=== PATIENT | female | born 1945 | race Caucasian/White ===

== ENCOUNTER 2017-08-16 08:59 | Emergency (ER) | payer OTHER, MEDICARE ==
[2017-08-16 09:14] VITALS: BP 133/78
--- NOTE | 2017-08-16 09:36 | UC ---
Lower Extremity/Ankle HPI - HPI Summary HPI Summary: 72 Y/O female presents S/P fall with ankle injury. States twisted ankle coming down stairs. L ankle swollen and painful. Unable to bear weight. Denies other injury. Medical history reviewed at this visit and is significant for HTN and diabetes. Blood pressure is elevated at this visit most likely due to current injury and pain. States is adherent with medications. - History of Current Complaint Chief Complaint: UCLowerExtremity Stated Complaint: ANKLE INJURY Time Seen by Provider: 08/16/17 09:00 Hx Obtained From: Patient ?: No Onset/Duration: Sudden Onset Severity Initially: Severe Severity Currently: Severe Pain Intensity: 7 Pain Scale Used: 0-10 Numeric Aggravating Factor(s): Standing, Ambulation Alleviating Factor(s): Rest Able to Bear Weight: No - Risk Factors Gout Risk Factors: Negative DVT Risk Factors: Negative Septic Arthritis Risk Factor: Negative - Allergies/Home Medications Allergies/Adverse Reactions: Allergies Allergy/AdvReac Type Severity Reaction Status Date / Time Cephalexin [From Keflex] Allergy Unknown Verified 02/14/13 08:42 Reaction Details Home Medications: Home Medications Cholecalciferol [Vitamin D] 1,000 unit PO 08/16/17 [History] Simvastatin TAB(NF) [Zocor(NF)] 10 mg PO 1700 08/16/17 [History Confirmed ] metFORMIN* [Glucophage 500 MG TAB *] 500 mg PO BID 08/16/17 [History Confirmed 08/16/17] PMH/Surg Hx/FS Hx/Imm Hx Endocrine History: Diabetes, Dyslipidemia Cardiovascular History: Hypertension Respiratory History: COPD - Surgical History Surgical History: Yes Surgery Procedure, Year, and Place: LAPOROSCOPY. TUBAL LIGATION - Social History Alcohol Use: Rare Substance Use Type: None Smoking Status (MU): Heavy Every Day Tobacco Smoker Type: Cigarettes Review of Systems Constitutional: Negative Skin: Negative Respiratory: Negative Cardiovascular: Negative Gastrointestinal: Negative Genitourinary: Negative Musculoskeletal: Decreased ROM - Left foot and ankle Neurological: Negative Psychological: Negative Is Patient Immunocompromised?: No All Other Systems Reviewed And Are Negative: Yes Physical Exam Triage Information Reviewed: Yes Appearance: Well-Appearing Vital Signs: Initial Vital Signs Temp 98.2 F 08/16/17 09:10 Pulse 107 08/16/17 09:10 Resp 18 08/16/17 09:10 BP 133/78 08/16/17 09:10 Pulse Ox 91 08/16/17 09:10 Vital Signs Reviewed: Yes Eye Exam: Normal Respiratory Exam: Normal Respiratory: Positive: Lungs clear, Normal breath sounds Cardiovascular Exam: Normal Cardiovascular: Positive: RRR Musculoskeletal Exam: Other Musculoskeletal: Positive: ROM Limited @ - L foot and ankle Neurological Exam: Normal Neurological: Positive: Alert Psychological Exam: Normal Skin Exam: Normal Lower Extremity Course/Dx - Differential Dx/Diagnosis Differential Diagnosis/HQI/PQRI: Fracture (Closed), Sprain, Strain Provider Diagnoses: Disatal Fibula and fith metatarsal fx Discharge - Discharge Plan Condition: Stable Disposition: HOME Patient Education Materials: Leg Fracture (ED) Referrals: Chris Andrews MD [Primary Care Provider] - Dariela Chaudhary MD [Medical Doctor] - Additional Instructions: Your xray show a fibula fracture and a fifth metatarsal fracture. Please do not bear weight on your L leg. Take Ibuprofen for pain, you have been given narcotic pain medication for moderate to severe pain. Please take extra precautions to prevent falls while on pain medications. Follow up with orthopedics in the morning. You may return to Urgent Care as needed.
--- NOTE | 2017-08-16 09:59 | RAD ---
INDICATION: Left ankle injury. TECHNIQUE: 3 views of the left ankle were obtained. FINDINGS: There is anterolateral soft tissue swelling. There is an oblique intra-articular nondisplaced fracture of the distal fibula. Joint spaces appear maintained. There is a transverse nondisplaced fracture at the base of the fifth metatarsal. IMPRESSION: 1. OBLIQUE INTRA-ARTICULAR NONDISPLACED FRACTURE OF THE DISTAL FIBULA. 2. TRANSVERSE NONDISPLACED FRACTURE BASE OF THE FIFTH METATARSAL.
[2017-08-16] MEDS ORDERED: HYDROcodone/ACETAMIN 5-325 MG* 1 TAB PO ONE (10:05)
== END 2017-08-16 10:18 | disposition home or self-care (01) ==
LOC: UCEAST 08:59
DX: S82.832A Other fracture of upper and lower end of left fibula, initial encounter for closed fracture (principal); S92.352A Displaced fracture of fifth metatarsal bone, left foot, initial encounter for closed fracture; X50.1XXA Overexertion from prolonged static or awkward postures, initial encounter; Y93.01 Activity, walking, marching and hiking; Y92.9 Unspecified place or not applicable; Y99.9 Unspecified external cause status; E11.9 Type 2 diabetes mellitus without complications; I10 Essential (primary) hypertension; Z79.84 Long term (current) use of oral hypoglycemic drugs; E78.5 Hyperlipidemia, unspecified; Z72.0 Tobacco use
CPT/HCPCS: 99213; G0463

== ENCOUNTER 2023-08-17 11:07 | Inpatient (IN) ==
[2023-08-17] MEDS ORDERED: Piperacillin/Tazobac 3.375 BAG 3.375 GM/100 ML BAG IV ONE (12:34)
[2023-08-17] MEDS ORDERED: Albuterol/Ipratropium NEB.SOL (2.5/0.5 MG) 3 ML NEB.SOLN INH ONE (12:35)
[2023-08-17 13:06] LABS: PCO2 Arterial 79 mmHg (35-45); PO2 Arterial 53 mmHg (80-100)
[2023-08-17 13:37] LABS: ABS Monocytes 0.4 10^3/uL (0.0-0.9); ABS Neutrophils 8.7 10^3/uL (1.5-7.6); Eosinophil % 0.4 %; Hematocrit 36.5 % (35-45); Hemoglobin 9.9 g/dL (11.5-14.3); Mean Corpuscular Hgb Conc 27.2 g/dL (31-36); Mean Corpuscular Volume 73.6 fL (80-97); Mean Platelet Volume 8.4 fL (7.5-11.2); Platelet Count 240 10^3/uL (150-450); Red Blood Count 4.96 10^6/uL (3.63-4.92); Red Cell Distribution Width 22.2 % (12-17); White Blood Count 10.2 10^3/uL (3.8-11.8)
[2023-08-17 13:48] LABS: Albumin/Globulin Ratio 1.4 (1-3); C Reactive Protein 3.7 mg/L (<8.01); Calcium 9.3 mg/dL (8.6-10.3); Creatinine, Serum 2.61 mg/dL (0.51-0.95); Globulin 2.8 g/dL (2-4); Magnesium 2.6 mg/dL (1.9-2.7); Phosphorus 5.5 mg/dL (2.5-5.0); Total Bilirubin 0.6 mg/dL (0.2-1.0); Total Protein 6.8 g/dL (6.4-8.9); eGFR CKD-EPI 18.5 (>60)
[2023-08-17 14:09] LABS: INR 1.08 (0.83-1.13)
[2023-08-17] MEDS ORDERED: NS 0.9% 1000 ml BAG 1,000 ML IV ONE (14:12)
[2023-08-17 14:52] LABS: PO2 Arterial 194 mmHg (80-100)
[2023-08-17 14:54] LABS: PCO2 Arterial 93 mmHg (35-45)
[2023-08-17] MEDS ORDERED: Succinylcholine 200 mg VIAL 20 mg/ml 10 ml VIAL (200 mg) ONE (14:55)
[2023-08-17] MEDS ORDERED: Etomidate 40 mg/20 ml (2 MG/ML) 20 ml VIAL (40 mg) ONE (14:55)
[2023-08-17 14:57] LABS: High Sensitivity Troponin 1 Hr 20 pg/mL (<15)
[2023-08-17] MEDS ORDERED: CALCIUM GLUCONATE 1GM/50ML NS 1 GM/50 ML BAG IV ONE (15:15)
[2023-08-17] MEDS ORDERED: Dextrose 50% Syringe 50 ml 25 GM/50 ML SYRINGE IV PUSH ONE (15:16)
[2023-08-17 15:38] LABS: Urine Appearance Cloudy; Urine Bilirubin Negative (Negative); Urine Blood Negative (Negative); Urine Color Amber; Urine Glucose Negative (Negative); Urine Ketones Negative (Negative); Urine Nitrite Negative (Negative); Urine Protein 2+(100 mg/dL) (Negative); Urine Specific Gravity 1.018 (1.002-1.030); Urine Urobilinogen Negative (Negative)
[2023-08-17 15:45] LABS: Urine Bacteria Absent (Absent); Urine Red Blood Cell Absent (Absent); Urine Squamous Epithelial Cell Present (Absent); Urine White Blood Cell Absent (Absent)
[2023-08-17 16:29] LABS: PO2 Arterial 84 mmHg (80-100)
[2023-08-17 16:31] LABS: PCO2 Arterial 75 mmHg (35-45)
[2023-08-17] MEDS ORDERED: Albuterol/Ipratropium NEB.SOL (2.5/0.5 MG) 3 ML NEB.SOLN INH PRN (16:32)
[2023-08-17] MEDS ORDERED: Azithromycin 500 mg/250 ml NS 500 MG/250 ML BAG IVPB ONE (17:28)
[2023-08-17] MEDS ORDERED: Dextrose 50% Syringe 50 ml 25 GM/50 ML SYRINGE IV PUSH PRN (17:32)
[2023-08-17 17:54] LABS: PCO2 Arterial 67 mmHg (35-45); PO2 Arterial 81 mmHg (80-100)
[2023-08-17] MEDS ORDERED: methylPREDNISolone SOD SUCC 125 mg 2 ML VIAL IV ONE (17:56)
[2023-08-17] MEDS ORDERED: methylPREDNISolone SOD SUCC 40 mg/ml 1 ml VIAL IV SCH (18:00)
[2023-08-17] MEDS ORDERED: Cefepime 2 GM in Dextrose 2 GM/50 ML BAG IV SCH (18:00)
[2023-08-17] MEDS ORDERED: Lactated Ringers 1000 ml BAG 500 ML IV ONE (18:29)
[2023-08-17] MEDS ORDERED: SODIUM ZIRCONIUM CYCLOSILICATE 10 GM PACKET PO ONE (19:15)
[2023-08-17] MEDS ORDERED: Norepinephrine 4 MG/250mL D5W 0 MCG/0 ML BAG IV ONE (19:34)
[2023-08-17] MEDS ORDERED: Norepinephrine 4 MG/250mL D5W 4,000 MCG/250 ML BAG IV SCH (20:00)
[2023-08-17] MEDS: Cefepime 1 GM in Dextrose 1 GM/50 ML BAG IV SCH (20:40)
[2023-08-17 21:31] LABS: Anion Gap 7 mmol/L (2-16); Blood Urea Nitrogen 81 mg/dL (6-24); CO2 Carbon Dioxide 19 mmol/L (22-32); Calcium 8.1 mg/dL (8.6-10.3); Chloride 109 mmol/L (101-111); Glucose 201 mg/dL (70-100); Sodium 135 mmol/L (135-145); eGFR CKD-EPI 19.4 (>60)
[2023-08-17 23:04] LABS: Potassium, Whole Blood 6.2 mmol/L (3.4-4.5)
[2023-08-17 23:17] LABS: Body Fluid Total Nucleated 386 /mcL
[2023-08-17 23:51] LABS: Body Fluid Source Pleural Fluid
[2023-08-17 23:53] LABS: Body Fluid Appearance Clear; Body Fluid Color Yellow
[2023-08-18 04:45] LABS: Body Fluid Mono 10 %; Body Fluid Other Cells 6; Body Fluid Total Cells Counted 200
[2023-08-18] MEDS: Cefepime 1 GM in Dextrose 1 GM/50 ML BAG IV SCH ×2 (04:52→19:50)
[2023-08-18 04:57] LABS: Anion Gap 6 mmol/L (2-16); Blood Urea Nitrogen 84 mg/dL (6-24); CO2 Carbon Dioxide 24 mmol/L (22-32); Calcium 8.7 mg/dL (8.6-10.3); Chloride 109 mmol/L (101-111); Creatinine, Serum 2.54 mg/dL (0.51-0.95); Glucose 115 mg/dL (70-100); Magnesium 2.3 mg/dL (1.9-2.7); Phosphorus 5.3 mg/dL (2.5-5.0); Potassium 5.9 mmol/L (3.5-5.0); Sodium 139 mmol/L (135-145); eGFR CKD-EPI 19.1 (>60)
[2023-08-18 05:05] LABS: Hematocrit 32.1 % (35-45); Hemoglobin 8.9 g/dL (11.5-14.3); Mean Corpuscular Hemoglobin 20.4 pg (27-33); Mean Corpuscular Hgb Conc 27.7 g/dL (31-36); Mean Corpuscular Volume 73.7 fL (80-97); Red Blood Count 4.36 10^6/uL (3.63-4.92); Red Cell Distribution Width 22.2 % (12-17); White Blood Count 7.5 10^3/uL (3.8-11.8)
[2023-08-18 05:09] LABS: Iron < 20 ug/dL (50-212)
[2023-08-18 05:24] LABS: TSH Ultra Thyroid Stim Horm 4.27 mcIU/mL (0.34-5.60)
[2023-08-18 05:29] LABS: Ferritin 10.4 ng/mL (11-307)
[2023-08-18] MEDS ORDERED: SODIUM ZIRCONIUM CYCLOSILICATE 10 GM PACKET PO ONE (07:44)
[2023-08-18 07:53] LABS: ABS Basophils 0.1 10^3/uL (0.0-0.1); ABS Lymphocytes 0.3 10^3/uL (1.0-4.8); ABS Neutrophils 7.1 10^3/uL (1.5-7.6); ABS Nucleated RBC 0.04 10^3/ul; Anisocytosis 2+; Hypochromasia 3+; Lymphocyte % 3.5 %; Microcytosis 1+; Nucleated Red Blood Cells % 0.5 %/100WBC (0.0-0.8); Polychromasia 1+
[2023-08-18] MEDS ORDERED: SODIUM ZIRCONIUM CYCLOSILICATE 5 GM PACKET PO ONE (08:00)
[2023-08-18 08:18] LABS: Mean Platelet Volume 8.6 fL (7.5-11.2); Platelet Count 169 10^3/uL (150-450)
[2023-08-18 08:21] LABS: % Iron Saturation 5 % (15-55); .Transferrin 280 mg/dL (203-362); Total Iron Binding Capacity 392 mcg/dL (250-450); Unsaturated Iron Binding 372 ug/dL
[2023-08-18] MEDS ORDERED: Iron Sucrose 200 MG in NS 0.9% 100 ml BAG 100 ML IVPB ONE (09:20)
[2023-08-18 13:19] LABS: ALT 15 U/L (7-52); AST 13 U/L (13-39); Albumin 3.4 g/dL (3.2-5.2); Albumin/Globulin Ratio 1.5 (1-3); Alkaline Phosphatase 72 U/L (35-149); Direct Bilirubin 0.1 mg/dL (0.03-0.18); Globulin 2.3 g/dL (2-4); Indirect Bilirubin 0.4 mg/dL (0.3-1.0); Total Bilirubin 0.5 mg/dL (0.2-1.0); Total Protein 5.7 g/dL (6.4-8.9)
[2023-08-18] MEDS ORDERED: Furosemide 40 mg/4 ml IV VIAL IV ONE (13:56)
[2023-08-18 15:03] LABS: Hematocrit 31.2 % (35-45); Hemoglobin 8.6 g/dL (11.5-14.3)
[2023-08-18] MEDS ORDERED: Sulfur Hexaflouride MICROSPHR 25 MG VIAL ONE (15:10)
[2023-08-18 15:23] LABS: Urine Creatinine Concentration 160.41 mg/dL (20.00-320.00); Urine Sodium Concentration < 18 mmol/L
[2023-08-18 15:25] LABS: UR Microalbumin (mg/L) 272.4 mg/L; Urine Creatinine 161.91 mg/dL; Urine Microalbumin/Creatinine 168.2 mcg/mg (<31)
[2023-08-18 15:57] LABS: Hepatitis B Surface Antigen Nonreactive (Nonreactive)
[2023-08-18 16:14] LABS: Hepatitis C Antibody Negative (Negative)
[2023-08-18 16:43] LABS: Calcium 8.6 mg/dL (8.6-10.3); Creatinine, Serum 2.55 mg/dL (0.51-0.95); Potassium 5.7 mmol/L (3.5-5.0)
[2023-08-18] MEDS ORDERED: Dextrose 50% Syringe 50 ml 25 GM/50 ML SYRINGE IV PUSH ONE (18:44)
[2023-08-18] MEDS: Pantoprazole VIAL 40 MG VIAL IV SCH (18:53)
[2023-08-18 20:25] LABS: Hematocrit 31.3 % (35-45); Hemoglobin 8.6 g/dL (11.5-14.3)
[2023-08-19 02:32] LABS: Hematocrit 30.9 % (35-45); Hemoglobin 8.2 g/dL (11.5-14.3)
[2023-08-19 04:49] LABS: Hematocrit 31.4 % (35-45); Hemoglobin 8.5 g/dL (11.5-14.3); Mean Corpuscular Hemoglobin 20.4 pg (27-33); Mean Corpuscular Hgb Conc 27.1 g/dL (31-36); Mean Corpuscular Volume 75.4 fL (80-97); Mean Platelet Volume 9.1 fL (7.5-11.2); Platelet Count 187 10^3/uL (150-450); Red Blood Count 4.17 10^6/uL (3.63-4.92); Red Cell Distribution Width 22.3 % (12-17); White Blood Count 12.2 10^3/uL (3.8-11.8)
[2023-08-19] MEDS: Cefepime 1 GM in Dextrose 1 GM/50 ML BAG IV SCH ×2 (05:14→20:09)
[2023-08-19 05:56] LABS: Phosphorus 5.8 mg/dL (2.5-5.0); Potassium 5.6 mmol/L (3.5-5.0)
[2023-08-19 05:57] LABS: Calcium 8.7 mg/dL (8.6-10.3); Creatinine, Serum 2.8 mg/dL (0.51-0.95); Magnesium 2.5 mg/dL (1.9-2.7)
[2023-08-19 07:50] LABS: ABS Basophils 0.1 10^3/uL (0.0-0.1); ABS Lymphocytes 1.5 10^3/uL (1.0-4.8); ABS Monocytes 0.7 10^3/uL (0.0-0.9); ABS Neutrophils 9.9 10^3/uL (1.5-7.6); ABS Nucleated RBC 0.09 10^3/ul; Eosinophil % 0.3 %; Lymphocyte % 12.3 %; Nucleated Red Blood Cells % 0.7 %/100WBC (0.0-0.8)
[2023-08-19 07:51] LABS: Acanthocytes 1+; Anisocytosis 2+; Polychromasia 1+
[2023-08-19] MEDS ORDERED: SODIUM ZIRCONIUM CYCLOSILICATE 5 GM PACKET PO ONE (07:51)
[2023-08-19] MEDS ORDERED: SODIUM ZIRCONIUM CYCLOSILICATE 10 GM PACKET PO SCH (08:00)
[2023-08-19] MEDS ORDERED: Furosemide 40 mg/4 ml IV VIAL IV ONE (08:40)
[2023-08-19 09:27] LABS: Albumin 3.3 g/dL (3.2-5.2)
[2023-08-19] MEDS: Iron Sucrose 200 MG in NS 0.9% 100 ml BAG 100 ML IVPB SCH (10:30)
[2023-08-19 11:42] LABS: Fluid Type, Amylase PLEURAL
[2023-08-19 11:46] LABS: Albumin, BF 1.5 g/dL; Fluid Type, Albumin PLEURAL; Fluid Type, Protein, Total PLEURAL; Glucose, BF 157 mg/dL; Total Protein, BF 2.5 g/dL
[2023-08-19 15:12] LABS: Hematocrit 31.8 % (35-45); Hemoglobin 8.7 g/dL (11.5-14.3)
[2023-08-19 15:30] LABS: Calcium 8.7 mg/dL (8.6-10.3); Creatinine, Serum 2.96 mg/dL (0.51-0.95); Potassium 5.3 mmol/L (3.5-5.0); eGFR CKD-EPI 15.9 (>60)
[2023-08-19] MEDS: Lactulose 30 ml UDC PO SCH ×5 (17:01→22:49)
[2023-08-19] MEDS: Pantoprazole VIAL 40 MG VIAL IV SCH (17:04)
[2023-08-19] MEDS: SODIUM ZIRCONIUM CYCLOSILICATE 10 GM PACKET PO SCH (20:08)
[2023-08-20] MEDS: Lactulose 30 ml UDC PO SCH ×5 (01:07→16:42)
[2023-08-20 06:10] LABS: Hemoglobin 8.6 g/dL (11.5-14.3); Mean Corpuscular Hemoglobin 20.4 pg (27-33); Mean Corpuscular Hgb Conc 26.9 g/dL (31-36); Mean Corpuscular Volume 75.7 fL (80-97); Mean Platelet Volume 8.8 fL (7.5-11.2); Platelet Count 169 10^3/uL (150-450); Red Blood Count 4.22 10^6/uL (3.63-4.92); Red Cell Distribution Width 22.6 % (12-17)
[2023-08-20] MEDS: Cefepime 1 GM in Dextrose 1 GM/50 ML BAG IV SCH ×2 (06:28→18:46)
[2023-08-20 06:34] LABS: Calcium 8.5 mg/dL (8.6-10.3); Creatinine, Serum 3.39 mg/dL (0.51-0.95); Magnesium 2.5 mg/dL (1.9-2.7); eGFR CKD-EPI 13.5 (>60)
[2023-08-20] MEDS: SODIUM ZIRCONIUM CYCLOSILICATE 10 GM PACKET PO SCH (09:18)
[2023-08-20] MEDS: Iron Sucrose 200 MG in NS 0.9% 100 ml BAG 100 ML IVPB SCH (10:33)
[2023-08-20] MEDS ORDERED: Furosemide 100 mg/10 ml IV 100 MG in NS 0.9% 100 ml BAG 90 ML IV SCH (11:00)
[2023-08-20 16:40] LABS: Cancer Ag (CA 125), S 164 U/mL (<46)
[2023-08-20 16:59] LABS: Urine TP Concentration 143 mg/dL
[2023-08-20 17:55] LABS: CA 19-9 <1 U/mL (<35)
[2023-08-20] MEDS: Pantoprazole VIAL 40 MG VIAL IV SCH (18:19)
[2023-08-20] MEDS ORDERED: methylPREDNISolone SOD SUCC 40 mg/ml 1 ml VIAL IV SCH (19:00)
[2023-08-20 19:26] LABS: Calcium 8.6 mg/dL (8.6-10.3); Creatinine, Serum 3.53 mg/dL (0.51-0.95); Magnesium 2.5 mg/dL (1.9-2.7); Phosphorus 6.2 mg/dL (2.5-5.0); eGFR CKD-EPI 12.9 (>60)
[2023-08-21 03:55] LABS: Venous Bicarbonate HCO3 21.2 mmol/L (24-28)
[2023-08-21 04:14] LABS: Hematocrit 32.7 % (35-45); Mean Corpuscular Hemoglobin 20.6 pg (27-33); Mean Corpuscular Hgb Conc 27.4 g/dL (31-36); Mean Corpuscular Volume 75.2 fL (80-97); Mean Platelet Volume 8.9 fL (7.5-11.2); Platelet Count 144 10^3/uL (150-450); Red Blood Count 4.35 10^6/uL (3.63-4.92); White Blood Count 10.6 10^3/uL (3.8-11.8)
[2023-08-21 04:15] LABS: Calcium 8.6 mg/dL (8.6-10.3); Creatinine, Serum 3.65 mg/dL (0.51-0.95); Magnesium 2.6 mg/dL (1.9-2.7); Phosphorus 6.1 mg/dL (2.5-5.0); Potassium 5.3 mmol/L (3.5-5.0); eGFR CKD-EPI 12.3 (>60)
[2023-08-21 04:40] LABS: Anisocytosis 3+; Hypochromasia 2+; Polychromasia 1+
[2023-08-21 04:41] LABS: ABS Basophils 0.2 10^3/uL (0.0-0.1); ABS Eosinophils 0.2 10^3/uL (0.0-0.5); ABS Lymphocytes 0.9 10^3/uL (1.0-4.8); ABS Monocytes 0.6 10^3/uL (0.0-0.9); ABS Neutrophils 8.6 10^3/uL (1.5-7.6); ABS Nucleated RBC 0.07 10^3/ul; Eosinophil % 2.1 %; Lymphocyte % 8.7 %; Nucleated Red Blood Cells % 0.6 %/100WBC (0.0-0.8)
[2023-08-21] MEDS ORDERED: SODIUM ZIRCONIUM CYCLOSILICATE 10 GM PACKET PO ONE (05:04)
[2023-08-21] MEDS: Cefepime 1 GM in Dextrose 1 GM/50 ML BAG IV SCH (06:21)
[2023-08-21] MEDS: Iron Sucrose 200 MG in NS 0.9% 100 ml BAG 100 ML IVPB SCH (09:35)
[2023-08-21] MEDS ORDERED: Furosemide 40 mg/4 ml IV VIAL IV ONE (11:24)
[2023-08-21] MEDS ORDERED: Furosemide 100 mg/10 ml IV 100 MG in NS 0.9% 100 ml BAG 90 ML IV SCH ×5 (12:00→23:30)
[2023-08-21] MEDS ORDERED: ZOSYN 3.375 GM x ONE DOSE over 30 miuntes IV (12:00)
[2023-08-21] MEDS ORDERED: Zosyn per Pharmacy NOTE FOLLOW UP SCH (12:00)
[2023-08-21 12:01] LABS: Albumin 3.3 g/dL (3.2-5.2); Albumin/Globulin Ratio 1.3 (1-3); Direct Bilirubin 0.1 mg/dL (0.03-0.18); Globulin 2.6 g/dL (2-4); Indirect Bilirubin 0.3 mg/dL (0.3-1.0); Total Bilirubin 0.4 mg/dL (0.2-1.0); Total Protein 5.9 g/dL (6.4-8.9)
[2023-08-21] MEDS: Furosemide 100 mg/10 ml IV 100 MG in NS 0.9% 100 ml BAG 90 ML IV SCH ×2 (17:06→21:51)
[2023-08-21] MEDS: Pantoprazole VIAL 40 MG VIAL IV SCH (17:06)
[2023-08-21] MEDS: ZOSYN 3.375 GM Q12H per EXTENDED INFUSION IV SCH (17:12)
[2023-08-21 17:54] LABS: Calcium 8.4 mg/dL (8.6-10.3); Creatinine, Serum 3.91 mg/dL (0.51-0.95); Potassium 5.4 mmol/L (3.5-5.0); eGFR CKD-EPI 11.4 (>60)
[2023-08-21] MEDS: SODIUM ZIRCONIUM CYCLOSILICATE 10 GM PACKET PO SCH (20:10)
[2023-08-22 00:10] LABS: Calcium 8.4 mg/dL (8.6-10.3); Creatinine, Serum 3.9 mg/dL (0.51-0.95); Potassium 4.9 mmol/L (3.5-5.0); eGFR CKD-EPI 11.4 (>60)
[2023-08-22] MEDS: Furosemide 100 mg/10 ml IV 100 MG in NS 0.9% 100 ml BAG 90 ML IV SCH ×4 (02:13→18:57)
[2023-08-22] MEDS: ZOSYN 3.375 GM Q12H per EXTENDED INFUSION IV SCH ×2 (04:43→19:28)
[2023-08-22 05:34] LABS: ABS Eosinophils 0.2 10^3/uL (0.0-0.5); ABS Lymphocytes 0.8 10^3/uL (1.0-4.8); ABS Monocytes 0.5 10^3/uL (0.0-0.9); ABS Neutrophils 7.3 10^3/uL (1.5-7.6); ABS Nucleated RBC 0.03 10^3/ul; Eosinophil % 2.2 %; Hematocrit 31.3 % (35-45); Hemoglobin 8.6 g/dL (11.5-14.3); Mean Corpuscular Hemoglobin 20.6 pg (27-33); Mean Corpuscular Hgb Conc 27.5 g/dL (31-36); Mean Corpuscular Volume 74.9 fL (80-97); Mean Platelet Volume 8.6 fL (7.5-11.2); Nucleated Red Blood Cells % 0.3 %/100WBC (0.0-0.8); Platelet Count 121 10^3/uL (150-450); Red Blood Count 4.17 10^6/uL (3.63-4.92); Red Cell Distribution Width 23.2 % (12-17); White Blood Count 8.8 10^3/uL (3.8-11.8)
[2023-08-22 05:52] LABS: Calcium 8.6 mg/dL (8.6-10.3); Creatinine, Serum 4.12 mg/dL (0.51-0.95); Magnesium 2.6 mg/dL (1.9-2.7); Phosphorus 6.6 mg/dL (2.5-5.0); Potassium 4.6 mmol/L (3.5-5.0); eGFR CKD-EPI 10.7 (>60)
[2023-08-22] MEDS: SODIUM ZIRCONIUM CYCLOSILICATE 10 GM PACKET PO SCH (07:46)
[2023-08-22] MEDS: Iron Sucrose 200 MG in NS 0.9% 100 ml BAG 100 ML IVPB SCH (07:46)
[2023-08-22] MEDS ORDERED: Ondansetron 4 mg VIAL 2 MG/ML 2 ml VIAL IV ONE (09:02)
[2023-08-22] MEDS ORDERED: Ondansetron 4 mg VIAL 2 MG/ML 2 ml VIAL ONE (09:05)
[2023-08-22 11:40] LABS: Activated Partial Thrombo Time 39.9 seconds (26.0-38.0); INR 1.14 (0.83-1.13)
[2023-08-22 13:26] LABS: HIV 4th Generation Nonreactive (Nonreactive)
[2023-08-22] MEDS ORDERED: Norepinephrine 4 MG/250mL D5W 4,000 MCG/250 ML BAG IV ONE (13:56)
[2023-08-22 14:01] LABS: INR 1.14 (0.83-1.13)
[2023-08-22 14:09] LABS: ABS Eosinophils 0.1 10^3/uL (0.0-0.5); ABS Lymphocytes 0.7 10^3/uL (1.0-4.8); ABS Monocytes 0.4 10^3/uL (0.0-0.9); ABS Neutrophils 7.9 10^3/uL (1.5-7.6); ABS Nucleated RBC 0.05 10^3/ul; Eosinophil % 0.9 %; Hematocrit 31.5 % (35-45); Hemoglobin 8.6 g/dL (11.5-14.3); Lymphocyte % 7.3 %; Mean Corpuscular Hemoglobin 20.7 pg (27-33); Mean Corpuscular Hgb Conc 27.3 g/dL (31-36); Mean Corpuscular Volume 75.7 fL (80-97); Nucleated Red Blood Cells % 0.6 %/100WBC (0.0-0.8); Platelet Count 121 10^3/uL (150-450); Red Blood Count 4.16 10^6/uL (3.63-4.92); Red Cell Distribution Width 23.2 % (12-17)
[2023-08-22 14:11] LABS: Creatinine, Serum 4.19 mg/dL (0.51-0.95); eGFR CKD-EPI 10.5 (>60)
[2023-08-22] MEDS: Heparin 5000 UNITS/ML 1 mL VIAL SUBCUT SCH ×2 (14:11→21:48)
[2023-08-22] MEDS: Norepinephrine 4 MG/250mL D5W 4,000 MCG/250 ML BAG IV SCH (14:12)
[2023-08-22 15:55] LABS: Anaplasma phagocytophilum Negative (Negative); B. miyamotoi PCR, B Negative (Negative); Babesia divergens/MO-1 Negative (Negative); Babesia ducani Negative (Negative); Ehrlichia chaffeensis Negative (Negative); Ehrlichia ewingii/canis Negative (Negative); Ehrlichia muris eauclairensis Negative (Negative)
[2023-08-22] MEDS ORDERED: Heparin 1,000 UNIT/ML 10 ml (10,000 UNITS) CATHLAB/DIALYSIS DIALYSIS ONE (20:00)
[2023-08-22] MEDS ORDERED: Bumetanide IV 0.25 MG/ML 4 ml VIAL (1 mg) IV SLOW PU ONE (20:01)
[2023-08-22] MEDS ORDERED: Albumin Human 25% 25 GM/100 ML BTL IV PRN (21:37)
[2023-08-22] MEDS: Pantoprazole VIAL 40 MG VIAL IV SCH (21:48)
[2023-08-22 22:01] LABS: Calcium 8.4 mg/dL (8.6-10.3); Creatinine, Serum 4.28 mg/dL (0.51-0.95); Potassium 4.5 mmol/L (3.5-5.0); eGFR CKD-EPI 10.2 (>60)
[2023-08-22] MEDS: Bumetanide IV 10 MG in Premix IV 0 ML IV SCH (22:28)
[2023-08-22] MEDS: Heparin 1,000 UNIT/ML 10 ml (10,000 UNITS) CATHLAB/DIALYSIS DIALYSIS PRN (23:33)
[2023-08-23] MEDS: Heparin 1,000 UNIT/ML 10 ml (10,000 UNITS) CATHLAB/DIALYSIS DIALYSIS PRN ×9 (00:21→17:41)
[2023-08-23] MEDS: Norepinephrine 4 MG/250mL D5W 4,000 MCG/250 ML BAG IV SCH ×4 (00:31→22:51)
[2023-08-23] MEDS: Bumetanide IV 10 MG in Premix IV 0 ML IV SCH ×5 (04:50→23:51)
[2023-08-23] MEDS: ZOSYN 3.375 GM Q12H per EXTENDED INFUSION IV SCH ×2 (05:07→17:35)
[2023-08-23 06:12] LABS: Creatinine, Serum 2.79 mg/dL (0.51-0.95); Phosphorus 5.6 mg/dL (2.5-5.0); Potassium 3.9 mmol/L (3.5-5.0)
[2023-08-23] MEDS: Heparin 5000 UNITS/ML 1 mL VIAL SUBCUT SCH ×3 (06:24→21:30)
[2023-08-23] MEDS: SODIUM ZIRCONIUM CYCLOSILICATE 10 GM PACKET PO SCH (09:20)
[2023-08-23] MEDS ORDERED: Albumin Human 25% 25 GM/100 ML BTL IV PRN (12:22)
[2023-08-23] MEDS ORDERED: NS 0.9% 1000 ml BAG 100 ML IV PRN (12:22)
[2023-08-23] MEDS ORDERED: NS 0.9% 1000 ml BAG 200 ML IV PRN (12:22)
[2023-08-23 14:51] LABS: Rheumatoid Factor < 10 IU/mL (<15)
[2023-08-23 15:13] LABS: Anion Gap 7 mmol/L (2-16); Blood Urea Nitrogen 55 mg/dL (6-24); CO2 Carbon Dioxide 28 mmol/L (22-32); Calcium 7.7 mg/dL (8.6-10.3); Chloride 101 mmol/L (101-111); Creatinine, Serum 3.21 mg/dL (0.51-0.95); Glucose 137 mg/dL (70-100); Sodium 136 mmol/L (135-145); eGFR CKD-EPI 14.4 (>60)
[2023-08-23] MEDS: Pantoprazole VIAL 40 MG VIAL IV SCH (17:35)
[2023-08-23 18:41] LABS: Hepatitis C Antibody Negative (Negative)
[2023-08-23] MEDS ORDERED: levETIRAcetam 1000MG IVPREMIX 1,000 MG/100 ML BAG IVPB ONE (19:00)
[2023-08-24 04:17] LABS: ABS Eosinophils 0.1 10^3/uL (0.0-0.5); ABS Lymphocytes 0.7 10^3/uL (1.0-4.8); ABS Monocytes 0.7 10^3/uL (0.0-0.9); ABS Neutrophils 7.6 10^3/uL (1.5-7.6); ABS Nucleated RBC 0.01 10^3/ul; Eosinophil % 1.5 %; Hemoglobin 8.8 g/dL (11.5-14.3); Lymphocyte % 7.8 %; Mean Corpuscular Hemoglobin 21.3 pg (27-33); Mean Corpuscular Hgb Conc 28.3 g/dL (31-36); Mean Corpuscular Volume 75.4 fL (80-97); Mean Platelet Volume 8.6 fL (7.5-11.2); Nucleated Red Blood Cells % 0.1 %/100WBC (0.0-0.8); Platelet Count 119 10^3/uL (150-450); Red Blood Count 4.11 10^6/uL (3.63-4.92); Red Cell Distribution Width 23.8 % (12-17); White Blood Count 9.2 10^3/uL (3.8-11.8)
[2023-08-24 04:33] LABS: Calcium 7.9 mg/dL (8.6-10.3); Creatinine, Serum 2.49 mg/dL (0.51-0.95); Magnesium 1.7 mg/dL (1.9-2.7); Potassium 3.6 mmol/L (3.5-5.0); eGFR CKD-EPI 19.5 (>60)
[2023-08-24] MEDS: Acetaminophen IV 1 GM/100ML 1,000 MG/100 ML BAG IV PRN ×3 (05:19→20:56)
[2023-08-24] MEDS: Bumetanide IV 10 MG in Premix IV 0 ML IV SCH ×4 (05:37→20:16)
[2023-08-24] MEDS: ZOSYN 3.375 GM Q12H per EXTENDED INFUSION IV SCH ×2 (05:40→16:56)
[2023-08-24] MEDS: Norepinephrine 4 MG/250mL D5W 4,000 MCG/250 ML BAG IV SCH ×2 (05:44→13:26)
[2023-08-24] MEDS ORDERED: Magnesium Sulfate 2 gm BAG 2 GM/50 ML BAG IV ONE (06:00)
[2023-08-24] MEDS: Heparin 5000 UNITS/ML 1 mL VIAL SUBCUT SCH ×3 (06:03→21:00)
[2023-08-24] MEDS: Heparin 1,000 UNIT/ML 10 ml (10,000 UNITS) CATHLAB/DIALYSIS DIALYSIS PRN ×3 (07:40→10:42)
[2023-08-24] MEDS ORDERED: Valproic Acid IV 500 MG in NS 0.9% 100 ml BAG 100 ML IVPB SCH (09:00)
[2023-08-24] MEDS ORDERED: levETIRAcetam 500 MG IVPREMIX 500 MG/100 ML BAG IV SCH (12:00)
[2023-08-24 12:56] LABS: Urine Kappa Total Light Chain 11.6 mg/dL (<0.9000); Urine Kappa/Lambda Light Chain 3.42; Urine Lambda Total Light Chain 3.39 mg/dL (<0.7000)
[2023-08-24] MEDS ORDERED: LaCOSAMide VIAL 200 MG in NS 0.9% 50 ML 50 ML IV ONE (14:00)
[2023-08-24] MEDS: Pantoprazole VIAL 40 MG VIAL IV SCH (18:07)
[2023-08-24 21:08] LABS: Calcium 7.6 mg/dL (8.6-10.3); Potassium 3.2 mmol/L (3.5-5.0)
[2023-08-24 21:49] LABS: Creatinine, Serum 2.09 mg/dL (0.51-0.95); eGFR CKD-EPI 24.1 (>60)
[2023-08-24] MEDS: KCL 20 MEQ/100 ML IVPREMIX 20 MEQ/100 ML BAG IV SCH (22:07)
[2023-08-25] MEDS: KCL 20 MEQ/100 ML IVPREMIX 20 MEQ/100 ML BAG IV SCH ×2 (00:07→02:11)
[2023-08-25] MEDS: Bumetanide IV 10 MG in Premix IV 0 ML IV SCH ×5 (00:42→20:38)
[2023-08-25] MEDS: LaCOSAMide VIAL 150 MG in NS 0.9% 50 ML 50 ML IV SCH ×2 (03:17→16:47)
[2023-08-25] MEDS: ZOSYN 3.375 GM Q12H per EXTENDED INFUSION IV SCH ×2 (04:26→16:51)
[2023-08-25] MEDS: Norepinephrine 4 MG/250mL D5W 4,000 MCG/250 ML BAG IV SCH (05:07)
[2023-08-25] MEDS: Heparin 5000 UNITS/ML 1 mL VIAL SUBCUT SCH ×3 (05:52→21:33)
[2023-08-25 06:54] LABS: ABS Basophils 0.1 10^3/uL (0.0-0.1); ABS Eosinophils 0.2 10^3/uL (0.0-0.5); ABS Lymphocytes 0.7 10^3/uL (1.0-4.8); ABS Monocytes 0.6 10^3/uL (0.0-0.9); ABS Neutrophils 6.7 10^3/uL (1.5-7.6); ABS Nucleated RBC 0.02 10^3/ul; Eosinophil % 2.2 %; Hemoglobin 8.3 g/dL (11.5-14.3); Lymphocyte % 8.8 %; Mean Corpuscular Hemoglobin 21.2 pg (27-33); Mean Corpuscular Hgb Conc 28.6 g/dL (31-36); Mean Corpuscular Volume 74.2 fL (80-97); Mean Platelet Volume 8.5 fL (7.5-11.2); Nucleated Red Blood Cells % 0.2 %/100WBC (0.0-0.8); Platelet Count 122 10^3/uL (150-450); Red Blood Count 3.91 10^6/uL (3.63-4.92); Red Cell Distribution Width 23.5 % (12-17); White Blood Count 8.3 10^3/uL (3.8-11.8)
[2023-08-25 07:04] LABS: Albumin 2.8 g/dL (3.2-5.2); Albumin/Globulin Ratio 1.1 (1-3); Calcium 7.9 mg/dL (8.6-10.3); Creatinine, Serum 2.52 mg/dL (0.51-0.95); Globulin 2.6 g/dL (2-4); Magnesium 1.9 mg/dL (1.9-2.7); Phosphorus 2.9 mg/dL (2.5-5.0); Total Bilirubin 0.3 mg/dL (0.2-1.0); Total Protein 5.4 g/dL (6.4-8.9); eGFR CKD-EPI 19.3 (>60)
[2023-08-25] MEDS: Heparin 1,000 UNIT/ML 10 ml (10,000 UNITS) CATHLAB/DIALYSIS DIALYSIS PRN ×4 (07:50→12:01)
[2023-08-25 09:15] LABS: Albumin 2.8 g/dL (3.4-4.7); Flag, M-protein Isotype Negative (Negative); Total Protein 5.8 g/dL (6.3 - 7.9)
[2023-08-25 10:10] LABS: Albumin 46.5 mg/dL; Creatinine, Random, U 179 mg/dL (16 - 326); Gamma Globulin 24.8 mg/dL; Protein,Total, Random Urine 99 mg/dL; Protein/Creatinine Ratio 0.55 mg/mg (<0.18)
[2023-08-25 10:41] LABS: Lambda Free Light Chain, S 4.97 mg/dL
[2023-08-25 11:49] LABS: Complement C3 109 mg/dL (75 - 175)
[2023-08-25] MEDS: Acetaminophen IV 1 GM/100ML 1,000 MG/100 ML BAG IV PRN (11:50)
[2023-08-25 12:51] LABS: Hepatitis B Surface Ab Not Immune (Immune)
[2023-08-25] MEDS: Pantoprazole VIAL 40 MG VIAL IV SCH (17:34)
[2023-08-26 00:07] LABS: Albumin 2.6 g/dL (3.4-4.7); Flag, M-protein Isotype Negative (Negative); Total Protein 5.7 g/dL (6.3 - 7.9)
[2023-08-26] MEDS: Norepinephrine 4 MG/250mL D5W 4,000 MCG/250 ML BAG IV SCH ×2 (00:35→08:09)
[2023-08-26] MEDS: Bumetanide IV 10 MG in Premix IV 0 ML IV SCH ×5 (01:50→22:10)
[2023-08-26] MEDS: LaCOSAMide VIAL 150 MG in NS 0.9% 50 ML 50 ML IV SCH ×2 (03:07→14:58)
[2023-08-26] MEDS: ZOSYN 3.375 GM Q12H per EXTENDED INFUSION IV SCH (05:07)
[2023-08-26 05:08] LABS: Hematocrit 28.8 % (35-45); Hemoglobin 8.1 g/dL (11.5-14.3); Mean Corpuscular Hemoglobin 21.1 pg (27-33); Mean Corpuscular Hgb Conc 28.2 g/dL (31-36); Mean Corpuscular Volume 74.8 fL (80-97); Mean Platelet Volume 8.5 fL (7.5-11.2); Platelet Count 151 10^3/uL (150-450); Red Blood Count 3.85 10^6/uL (3.63-4.92); Red Cell Distribution Width 25.5 % (12-17); White Blood Count 11.2 10^3/uL (3.8-11.8)
[2023-08-26 05:11] LABS: Creatinine, Serum 2.43 mg/dL (0.51-0.95); Magnesium 1.7 mg/dL (1.9-2.7); Phosphorus 2.9 mg/dL (2.5-5.0); Potassium 3.4 mmol/L (3.5-5.0); eGFR CKD-EPI 20.1 (>60)
[2023-08-26] MEDS: Heparin 5000 UNITS/ML 1 mL VIAL SUBCUT SCH ×3 (05:29→22:27)
[2023-08-26 07:04] LABS: ABS Eosinophils 0.2 10^3/uL (0.0-0.5); ABS Lymphocytes 0.8 10^3/uL (1.0-4.8); ABS Monocytes 0.9 10^3/uL (0.0-0.9); ABS Neutrophils 9.2 10^3/uL (1.5-7.6); Anisocytosis 2+; Eosinophil % 1.8 %; Hypochromasia 3+; Lymphocyte % 7.5 %; Microcytosis 1+
[2023-08-26] MEDS ORDERED: Magnesium Sulfate 2 gm BAG 2 GM/50 ML BAG IVPB ONE (08:10)
[2023-08-26] MEDS ORDERED: Polyethylene Glycol 3350 17 GM PACKET NG TUBE ONE (08:15)
[2023-08-26] MEDS ORDERED: Polyethylene Glycol 3350 17 GM PACKET NG TUBE SCH (09:00)
[2023-08-26 12:59] LABS: C-ANCA Negative (Negative); P-ANCA Negative (Negative)
[2023-08-26] MEDS: Heparin 1,000 UNIT/ML 10 ml (10,000 UNITS) CATHLAB/DIALYSIS DIALYSIS PRN ×5 (16:10→20:25)
[2023-08-26] MEDS: Pantoprazole VIAL 40 MG VIAL IV SCH (19:06)
[2023-08-27] MEDS: Bumetanide IV 10 MG in Premix IV 0 ML IV SCH ×6 (03:13→22:06)
[2023-08-27] MEDS: LaCOSAMide VIAL 150 MG in NS 0.9% 50 ML 50 ML IV SCH ×2 (03:18→15:01)
[2023-08-27] MEDS: Heparin 5000 UNITS/ML 1 mL VIAL SUBCUT SCH ×3 (05:14→21:08)
[2023-08-27 06:40] LABS: Albumin 2.6 g/dL (3.2-5.2); Albumin/Globulin Ratio 0.9 (1-3); Calcium 7.9 mg/dL (8.6-10.3); Creatinine, Serum 2.01 mg/dL (0.51-0.95); Globulin 2.8 g/dL (2-4); Magnesium 1.9 mg/dL (1.9-2.7); Phosphorus 1.5 mg/dL (2.5-5.0); Total Bilirubin 0.2 mg/dL (0.2-1.0); Total Protein 5.4 g/dL (6.4-8.9); eGFR CKD-EPI 25.3 (>60)
[2023-08-27] MEDS ORDERED: Magnesium Sulfate IV 1GM/100ML 1 GM/100 ML BAG IV ONE (07:02)
[2023-08-27] MEDS ORDERED: Potassium Chloride LIQUID 20 MEQ/15 ML LIQUID NG TUBE ONE ×2 (07:02→08:29)
[2023-08-27 07:27] LABS: Hematocrit 25.4 % (35-45); Hemoglobin 7.5 g/dL (11.5-14.3); Mean Corpuscular Hemoglobin 21.9 pg (27-33); Mean Corpuscular Hgb Conc 29.6 g/dL (31-36); Mean Corpuscular Volume 74.1 fL (80-97); Mean Platelet Volume 8.6 fL (7.5-11.2); Platelet Count 115 10^3/uL (150-450); Red Blood Count 3.43 10^6/uL (3.63-4.92); Red Cell Distribution Width 25.9 % (12-17); White Blood Count 6.6 10^3/uL (3.8-11.8)
[2023-08-27] MEDS ORDERED: Sodium Phosphate IV 45 MMOL in NS 0.9% 250 ml 250 ML IV ONE (08:22)
[2023-08-27 09:00] LABS: Anisocytosis 3+; Hypochromasia 3+; Microcytosis 2+; Polychromasia 1+; Tear Drop Cells 1+
[2023-08-27 09:01] LABS: ABS Lymphocytes 0.5 10^3/ul (1.0-4.8); ABS Neutrophils 5.3 10^3/ul (1.5-7.6)
[2023-08-27 09:02] LABS: ABS Eosinophils 0.3 10^3/ul (0.0-0.5); ABS Monocytes 0.5 10^3/ul (0.0-0.9)
[2023-08-27] MEDS: Heparin 1,000 UNIT/ML 10 ml (10,000 UNITS) CATHLAB/DIALYSIS DIALYSIS PRN ×5 (09:47→14:14)
[2023-08-27 14:23] LABS: Hematocrit 27.3 % (35-45); Hemoglobin 7.9 g/dL (11.5-14.3); Mean Corpuscular Hemoglobin 21.9 pg (27-33); Mean Corpuscular Hgb Conc 29.1 g/dL (31-36); Mean Corpuscular Volume 75.1 fL (80-97); Mean Platelet Volume 8.5 fL (7.5-11.2); Platelet Count 132 10^3/uL (150-450); Red Blood Count 3.63 10^6/uL (3.63-4.92); White Blood Count 8.4 10^3/uL (3.8-11.8)
[2023-08-27 14:41] LABS: Calcium 7.7 mg/dL (8.6-10.3); Creatinine, Serum 1.07 mg/dL (0.51-0.95); Phosphorus 2.6 mg/dL (2.5-5.0); Potassium 3.6 mmol/L (3.5-5.0); eGFR CKD-EPI 53.8 (>60)
[2023-08-27] MEDS: Pantoprazole VIAL 40 MG VIAL IV SCH (18:11)
[2023-08-28] MEDS: Bumetanide IV 10 MG in Premix IV 0 ML IV SCH ×5 (02:35→22:55)
[2023-08-28] MEDS: LaCOSAMide VIAL 150 MG in NS 0.9% 50 ML 50 ML IV SCH ×2 (03:06→14:48)
[2023-08-28] MEDS: Heparin 5000 UNITS/ML 1 mL VIAL SUBCUT SCH ×3 (05:49→21:43)
[2023-08-28 06:51] LABS: Calcium 7.9 mg/dL (8.6-10.3); Creatinine, Serum 2.11 mg/dL (0.51-0.95); Phosphorus 3.5 mg/dL (2.5-5.0); Potassium 3.7 mmol/L (3.5-5.0); eGFR CKD-EPI 23.8 (>60)
[2023-08-28 07:42] LABS: Hematocrit 25.5 % (35-45); Hemoglobin 7.6 g/dL (11.5-14.3); Mean Corpuscular Hemoglobin 22.4 pg (27-33); Mean Corpuscular Hgb Conc 29.8 g/dL (31-36); Mean Corpuscular Volume 75.2 fL (80-97); Mean Platelet Volume 8.6 fL (7.5-11.2); Platelet Count 149 10^3/uL (150-450); Red Blood Count 3.39 10^6/uL (3.63-4.92); Red Cell Distribution Width 30.3 % (12-17); White Blood Count 8.1 10^3/uL (3.8-11.8)
[2023-08-28 11:02] LABS: Venous Bicarbonate HCO3 27.5 mmol/L (24-28)
[2023-08-28] MEDS: Pantoprazole VIAL 40 MG VIAL IV SCH (18:13)
[2023-08-29] MEDS: LaCOSAMide VIAL 150 MG in NS 0.9% 50 ML 50 ML IV SCH ×2 (02:54→14:58)
[2023-08-29] MEDS: Bumetanide IV 10 MG in Premix IV 0 ML IV SCH ×6 (04:06→22:38)
[2023-08-29 05:43] LABS: Hematocrit 26.4 % (35-45); Hemoglobin 7.8 g/dL (11.5-14.3); Mean Corpuscular Hemoglobin 22.8 pg (27-33); Mean Corpuscular Hgb Conc 29.4 g/dL (31-36); Mean Corpuscular Volume 77.5 fL (80-97); Mean Platelet Volume 8.8 fL (7.5-11.2); Platelet Count 182 10^3/uL (150-450); Red Cell Distribution Width 31.2 % (12-17); White Blood Count 8.5 10^3/uL (3.8-11.8)
[2023-08-29 05:54] LABS: Calcium 8.9 mg/dL (8.6-10.3); Creatinine, Serum 2.95 mg/dL (0.51-0.95); Magnesium 2.2 mg/dL (1.9-2.7); Phosphorus 4.9 mg/dL (2.5-5.0); Potassium 3.8 mmol/L (3.5-5.0); eGFR CKD-EPI 15.9 (>60)
[2023-08-29] MEDS: Heparin 5000 UNITS/ML 1 mL VIAL SUBCUT SCH ×3 (06:10→21:54)
[2023-08-29] MEDS ORDERED: Albuterol/Ipratropium NEB.SOL (2.5/0.5 MG) 3 ML NEB.SOLN ONE (09:59)
[2023-08-29] MEDS: Albuterol/Ipratropium NEB.SOL (2.5/0.5 MG) 3 ML NEB.SOLN INH SCH ×3 (10:40→19:16)
[2023-08-29] MEDS: Pantoprazole VIAL 40 MG VIAL IV SCH (17:23)
[2023-08-30] MEDS: Albuterol/Ipratropium NEB.SOL (2.5/0.5 MG) 3 ML NEB.SOLN INH SCH ×2 (00:53→07:37)
[2023-08-30] MEDS: LaCOSAMide VIAL 150 MG in NS 0.9% 50 ML 50 ML IV SCH ×2 (03:16→17:28)
[2023-08-30] MEDS: Bumetanide IV 10 MG in Premix IV 0 ML IV SCH ×3 (03:40→12:22)
[2023-08-30] MEDS ORDERED: Norepinephrine 4 MG/250mL D5W 4,000 MCG/250 ML BAG IV SCH (04:00)
[2023-08-30 04:02] LABS: Calcium 9.4 mg/dL (8.6-10.3); Creatinine, Serum 3.63 mg/dL (0.51-0.95); Potassium 4.2 mmol/L (3.5-5.0); eGFR CKD-EPI 12.4 (>60)
[2023-08-30 04:12] LABS: Hematocrit 25.4 % (35-45); Hemoglobin 7.3 g/dL (11.5-14.3); Mean Corpuscular Hemoglobin 23.2 pg (27-33); Mean Corpuscular Hgb Conc 28.8 g/dL (31-36); Mean Corpuscular Volume 80.7 fL (80-97); Mean Platelet Volume 8.7 fL (7.5-11.2); Platelet Count 187 10^3/uL (150-450); Red Blood Count 3.15 10^6/uL (3.63-4.92); White Blood Count 8.2 10^3/uL (3.8-11.8)
[2023-08-30] MEDS: Heparin 1,000 UNIT/ML 10 ml (10,000 UNITS) CATHLAB/DIALYSIS DIALYSIS PRN ×5 (04:24→09:08)
[2023-08-30 04:51] LABS: ABS Eosinophils 0.1 10^3/uL (0.0-0.5); ABS Lymphocytes 0.6 10^3/uL (1.0-4.8); ABS Monocytes 0.5 10^3/uL (0.0-0.9); ABS Nucleated RBC 0.05 10^3/ul; Lymphocyte % 6.8 %; Nucleated Red Blood Cells % 0.7 %/100WBC (0.0-0.8)
[2023-08-30 04:52] LABS: Anisocytosis 3+; Basophilic Stippling 2+
[2023-08-30] MEDS: Heparin 5000 UNITS/ML 1 mL VIAL SUBCUT SCH ×3 (06:24→22:03)
[2023-08-30] MEDS ORDERED: Albuterol/Ipratropium NEB.SOL (2.5/0.5 MG) 3 ML NEB.SOLN INH PRN (09:57)
[2023-08-30] MEDS ORDERED: NS 0.9% 500 ml BAG 500 ML IV SCH (13:00)
[2023-08-30] MEDS: Polyethylene Glycol 3350 17 GM PACKET NG TUBE PRN (13:01)
[2023-08-30] MEDS: Norepinephrine 4 MG/250mL NS 4,000 MCG/250 ML BAG IV SCH ×2 (14:12→18:57)
[2023-08-30] MEDS: Pantoprazole VIAL 40 MG VIAL IV SCH (18:28)
[2023-08-30] MEDS ORDERED: Norepinephrine 16 MG/250mL NS 16,000 MCG/250 ML BAG IV SCH (21:40)
[2023-08-31] MEDS: Norepinephrine 16 MG/250mL NS 16,000 MCG/250 ML BAG IV SCH ×2 (00:41→12:47)
[2023-08-31] MEDS: LaCOSAMide VIAL 150 MG in NS 0.9% 50 ML 50 ML IV SCH ×2 (03:26→18:01)
[2023-08-31 04:57] LABS: Hematocrit 25.8 % (35-45); Hemoglobin 7.6 g/dL (11.5-14.3); Mean Corpuscular Hemoglobin 23.6 pg (27-33); Mean Corpuscular Hgb Conc 29.5 g/dL (31-36); Mean Corpuscular Volume 80.1 fL (80-97); Mean Platelet Volume 8.3 fL (7.5-11.2); Platelet Count 247 10^3/uL (150-450); Red Blood Count 3.22 10^6/uL (3.63-4.92); Red Cell Distribution Width 32.9 % (12-17); White Blood Count 10.6 10^3/uL (3.8-11.8)
[2023-08-31 05:11] LABS: Calcium 9.6 mg/dL (8.6-10.3); Creatinine, Serum 2.65 mg/dL (0.51-0.95); eGFR CKD-EPI 18.1 (>60)
[2023-08-31] MEDS: Heparin 5000 UNITS/ML 1 mL VIAL SUBCUT SCH ×3 (05:43→20:05)
[2023-08-31 06:04] LABS: ABS Eosinophils 0.1 10^3/uL (0.0-0.5); ABS Monocytes 0.9 10^3/uL (0.0-0.9); ABS Neutrophils 8.6 10^3/uL (1.5-7.6); ABS Nucleated RBC 0.04 10^3/ul; Anisocytosis 3+; Eosinophil % 0.9 %; Hypochromasia 1+; Lymphocyte % 9.1 %; Nucleated Red Blood Cells % 0.4 %/100WBC (0.0-0.8); Polychromasia 1+
[2023-08-31] MEDS: cefTRIAXone 1 gm/50 mL D5W 1 GM/50 ML BAG IV SCH (12:46)
[2023-08-31] MEDS: Pantoprazole VIAL 40 MG VIAL IV SCH (18:28)
[2023-08-31] MEDS: Polyethylene Glycol 3350 17 GM PACKET NG TUBE PRN (21:05)
[2023-08-31 22:16] LABS: Calcium 10.1 mg/dL (8.6-10.3); Creatinine, Serum 3.1 mg/dL (0.51-0.95); Potassium 3.9 mmol/L (3.5-5.0)
[2023-09-01] MEDS: LaCOSAMide VIAL 150 MG in NS 0.9% 50 ML 50 ML IV SCH ×2 (03:45→15:43)
[2023-09-01 05:06] LABS: Magnesium 2.3 mg/dL (1.9-2.7); Phosphorus 5.7 mg/dL (2.5-5.0)
[2023-09-01] MEDS: Heparin 5000 UNITS/ML 1 mL VIAL SUBCUT SCH ×3 (05:46→23:08)
[2023-09-01 05:56] LABS: Hematocrit 26.5 % (35-45); Hemoglobin 7.5 g/dL (11.5-14.3); Mean Corpuscular Hemoglobin 23.5 pg (27-33); Mean Corpuscular Hgb Conc 28.5 g/dL (31-36); Mean Corpuscular Volume 82.7 fL (80-97); Platelet Count 243 10^3/uL (150-450); Red Cell Distribution Width 33.4 % (12-17)
[2023-09-01 06:15] LABS: Calcium 10.4 mg/dL (8.6-10.3); Creatinine, Serum 3.16 mg/dL (0.51-0.95); Potassium 3.9 mmol/L (3.5-5.0); eGFR CKD-EPI 14.7 (>60)
[2023-09-01 07:22] LABS: ABS Basophils 0.1 10^3/uL (0.0-0.1); ABS Eosinophils 0.2 10^3/uL (0.0-0.5); ABS Lymphocytes 0.8 10^3/uL (1.0-4.8); ABS Monocytes 0.6 10^3/uL (0.0-0.9); ABS Neutrophils 7.4 10^3/uL (1.5-7.6); ABS Nucleated RBC 0.02 10^3/ul; Anisocytosis 3+; Basophilic Stippling 3+; Eosinophil % 1.8 %; Hypochromasia 2+; Lymphocyte % 8.4 %; Nucleated Red Blood Cells % 0.3 %/100WBC (0.0-0.8)
[2023-09-01] MEDS: Heparin 1,000 UNIT/ML 10 ml (10,000 UNITS) CATHLAB/DIALYSIS DIALYSIS PRN ×5 (07:35→11:45)
[2023-09-01] MEDS ORDERED: HYDROmorphone 0.5 MG/0.5 ML SYRINGE IV SLOW PU ONE (08:01)
[2023-09-01] MEDS: cefTRIAXone 1 gm/50 mL D5W 1 GM/50 ML BAG IV SCH (10:51)
[2023-09-01] MEDS ORDERED: Bumetanide IV 10 MG in Premix IV 0 ML IV SCH (12:30)
[2023-09-01] MEDS ORDERED: BUMETANIDE IV SCH (12:30)
[2023-09-01] MEDS: Bumetanide IV 10 MG in Premix IV 0 ML IV SCH ×2 (15:38→20:32)
[2023-09-01] MEDS: Norepinephrine 16 MG/250mL NS 16,000 MCG/250 ML BAG IV SCH (16:51)
[2023-09-01] MEDS: Pantoprazole VIAL 40 MG VIAL IV SCH (17:33)
[2023-09-02] MEDS: Bumetanide IV 10 MG in Premix IV 0 ML IV SCH ×5 (01:08→20:10)
[2023-09-02] MEDS: LaCOSAMide VIAL 150 MG in NS 0.9% 50 ML 50 ML IV SCH ×2 (03:20→14:28)
[2023-09-02 06:38] LABS: Hematocrit 26.4 % (35-45); Hemoglobin 7.8 g/dL (11.5-14.3); Mean Corpuscular Hemoglobin 24.5 pg (27-33); Mean Corpuscular Hgb Conc 29.8 g/dL (31-36); Mean Corpuscular Volume 82.2 fL (80-97); Red Blood Count 3.21 10^6/uL (3.63-4.92); White Blood Count 9.1 10^3/uL (3.8-11.8)
[2023-09-02] MEDS: Heparin 5000 UNITS/ML 1 mL VIAL SUBCUT SCH ×3 (07:19→22:52)
[2023-09-02 07:42] LABS: ABS Basophils 0.1 10^3/uL (0.0-0.1); ABS Eosinophils 0.2 10^3/uL (0.0-0.5); ABS Lymphocytes 0.6 10^3/uL (1.0-4.8); ABS Monocytes 0.7 10^3/uL (0.0-0.9); ABS Neutrophils 7.4 10^3/uL (1.5-7.6); ABS Nucleated RBC 0.01 10^3/ul; Anisocytosis 3+; Basophilic Stippling 3+; Eosinophil % 2.7 %; Hypochromasia 2+; Lymphocyte % 7.1 %; Mean Platelet Volume 7.8 fL (7.5-11.2); Nucleated Red Blood Cells % 0.1 %/100WBC (0.0-0.8); Platelet Count 224 10^3/uL (150-450)
[2023-09-02] MEDS: cefTRIAXone 1 gm/50 mL D5W 1 GM/50 ML BAG IV SCH (11:02)
[2023-09-02] MEDS: Pantoprazole VIAL 40 MG VIAL IV SCH (17:37)
[2023-09-03] MEDS: Bumetanide IV 10 MG in Premix IV 0 ML IV SCH ×3 (01:51→11:04)
[2023-09-03] MEDS: LaCOSAMide VIAL 150 MG in NS 0.9% 50 ML 50 ML IV SCH ×2 (02:43→15:01)
[2023-09-03] MEDS: Heparin 5000 UNITS/ML 1 mL VIAL SUBCUT SCH ×2 (06:13→15:01)
[2023-09-03] MEDS ORDERED: Morphine 2 MG/ML SYRINGE IV PRN (09:50)
[2023-09-03] MEDS: cefTRIAXone 1 gm/50 mL D5W 1 GM/50 ML BAG IV SCH (13:01)
[2023-09-03] MEDS ORDERED: Ondansetron ODT 4 mg TAB 4 MG TAB SL PRN (15:33)
[2023-09-03] MEDS ORDERED: LORazepam 2 mg VIAL 1 ml IV PUSH PRN (16:53)
[2023-09-03] MEDS ORDERED: Lorazepam PYXIS KEY PRN (16:53)
[2023-09-03] MEDS: LORazepam 2 mg VIAL 1 ml IV PUSH PRN ×2 (21:25→23:25)
[2023-09-03] MEDS: Morphine 2 MG/ML SYRINGE IV PRN (21:58)
[2023-09-04] MEDS: Morphine 2 MG/ML SYRINGE IV PRN ×4 (00:19→04:45)
[2023-09-04] MEDS: LORazepam 2 mg VIAL 1 ml IV PUSH PRN ×3 (01:18→04:45)
[2023-09-04 02:05] VITALS: BP 83/35
== END 2023-09-04 05:54 | disposition expired | DRG 682 ==
LOC: ED 11:07 → EDHOLD 16:27 → ICU 16:47
PROVIDERS: ADMIT Internal Medicine Pulmonary Disease; ATTEND Internal Medicine Pulmonary Disease